=== PATIENT | male | born 1995 | race Two or more races ===

== ENCOUNTER 2018-12-25 14:51 | Emergency (ER) | payer SELFPAY ==
[~2018-12-25] VITALS: Ht 177.8 cm; Wt 72.6 kg
--- NOTE | 2018-12-25 14:58 | NUR ---
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
--- NOTE | 2018-12-25 15:00 | NUR ---
PT LINE ESTABIGAILHED. LABS DRAWNED AND SENT TO LAB.
[2018-12-25] MEDS ORDERED: ACETAMINOPHEN ES 500 MG TABLET ONE (15:26)
[2018-12-25] MEDS ORDERED: IBUPROFEN 600 MG TABLET PO ONE ×2 (15:27→15:30)
[2018-12-25] MEDS ORDERED: ACETAMINOPHEN ES 500 MG TABLET PO ONE (15:30)
--- NOTE | 2018-12-25 15:30 | NUR ---
RN ANGIOGRAPHY AT BEDSIDE FOR XRAY.
[2018-12-25 17:40] VITALS: BP 121/68
--- NOTE | 2018-12-25 17:54 | NUR ---
Patient discharged to home in stable condition. Written and verbal after care instructions given. Patient verbalizes understanding of instruction.
== END 2018-12-25 17:57 | disposition home or self-care (01) ==
LOC: ER 14:52
DX: R07.89 Other chest pain (principal); F45.8 Other somatoform disorders; J45.909 Unspecified asthma, uncomplicated
CPT/HCPCS: 71045-TC

== ENCOUNTER 2019-03-30 17:37 | Emergency (ER) | payer SELFPAY ==
[~2019-03-30] VITALS: Ht 180.3 cm; Wt 73.5 kg
[2019-03-30 18:00] VITALS: BP 155/89
[2019-03-30] MEDS ORDERED: TETRACAINE HCL/PF 0.5% UD 2 ML BOTTLE ONE (18:09)
[2019-03-30] MEDS ORDERED: FLUORESCEIN SODIUM OPHTH 1 EA STRIP ONE (18:09)
--- NOTE | 2019-03-30 18:10 | NUR ---
FOREIGN BODY TO RIGHT EYE,INJURED AT WORK WHILE SAWING WOOD AT 1500. PATIENT A/OX4, KEPT COMFORTABLE IN BED, WAITING FOR MD JARA.
--- NOTE | 2019-03-30 19:29 | NUR ---
RIGHT EYE CLEANSED WITH NORMAL SALINE USING ELIZABETH LENS.
== END 2019-03-30 19:29 | disposition home or self-care (01) ==
LOC: ER 17:48
DX: H57.11 Ocular pain, right eye (principal); J45.909 Unspecified asthma, uncomplicated; F10.10 Alcohol abuse, uncomplicated; Y90.9 Presence of alcohol in blood, level not specified
CPT/HCPCS: 99283; J7030

== ENCOUNTER 2019-09-20 13:52 | Emergency (ER) | payer SELFPAY ==
[~2019-09-20] VITALS: Ht 177.8 cm; Wt 74.8 kg
--- NOTE | 2019-09-20 14:24 | NUR ---
PT AAOX4. AMBULATORY WITH STEADY GAIT. BIBSELF C/O "SOMEONE MIGHT HAVE SLIPPED SOMETHING IN MY DRINK LAST NIGHT." ALSO, STATES HE "BLACKED OUT." PT DENIES ANY PAIN. DENIES FALL. PT C/O BEING ANXIOUS AND HIS HEART "RACING." PLACED ON MONITOR AND PULSE OX. NO ACUTE DISTRESS NOTED. VSS. AWAITING MD FOR EVAL.
[2019-09-20] MEDS ORDERED: LORAZEPAM INJ 2 MG/ML VIAL ONE (14:59)
[2019-09-20] MEDS ORDERED: LORAZEPAM INJ 2 MG/ML VIAL IV ONE (15:00)
[2019-09-20] MEDS ORDERED: IV NS 0.9% 1,000 ML BAG IV ONE ×2 (15:00→16:00)
--- NOTE | 2019-09-20 15:34 | NUR ---
Patient is resting comfortably in bed. Easily aroused. VSS.
--- NOTE | 2019-09-20 16:41 | NUR ---
PT RESTING. PT STATED "I FEEL BETTER THAN WHEN I CAME IN HERE"
--- NOTE | 2019-09-20 16:52 | NUR ---
Patient discharged to home in stable condition. Written and verbal after care instructions given. Patient verbalizes understanding of instruction and RX. IV removed. Catheter intact and site benign. Pressure and 4x4 applied to site. No bleeding noted.
[2019-09-20 16:53] VITALS: BP 125/85
== END 2019-09-20 16:54 | disposition home or self-care (01) ==
LOC: ER 13:52
DX: F10.239 Alcohol dependence with withdrawal, unspecified (principal); F15.10 Other stimulant abuse, uncomplicated; J45.909 Unspecified asthma, uncomplicated; R00.0 Tachycardia, unspecified; Y90.9 Presence of alcohol in blood, level not specified
CPT/HCPCS: 93005; 96374; 99283; J2060; J7030 ×2

== ENCOUNTER 2022-07-11 09:04 | Emergency (ER) | payer OTHER ==
[~2022-07-11] VITALS: Ht 172.7 cm; Wt 81.6 kg
[2022-07-11] MEDS ORDERED: predniSONE 20 MG TABLET PO ONE (09:30)
[2022-07-11] MEDS ORDERED: ALBUTEROL FS 2.5 MG/3 ML VIAL.NEB CONTNEB ONE (09:30)
[2022-07-11] MEDS ORDERED: IPRATROPIUM NEB FS 0.5 MG/2.5 ML AMPUL.NEB NEB ONE (09:30)
--- NOTE | 2022-07-11 09:45 | NUR ---
RT CALLED FOR BREATHING TX
[2022-07-11] MEDS ORDERED: predniSONE 20 MG TABLET ONE (09:47)
[2022-07-11] MEDS ORDERED: ALBUTEROL FS 2.5 MG/3 ML VIAL.NEB ONE (09:54)
[2022-07-11] MEDS ORDERED: IPRATROPIUM NEB FS 0.5 MG/2.5 ML AMPUL.NEB ONE (09:54)
[2022-07-11 09:59] VITALS: BP 140/90
[2022-07-11] MEDS ORDERED: PRED50TA PO (10:19)
[2022-07-11] MEDS ORDERED: ALBU6.7H9 INH (10:19)
--- NOTE | 2022-07-11 10:34 | NUR ---
Patient discharged to home in stable condition. Written and verbal after care instructions given. Patient verbalizes understanding of instruction.
== END 2022-07-11 10:45 | disposition home or self-care (01) ==
LOC: ER 09:11
DX: S20.212A Contusion of left front wall of thorax, initial encounter (principal); J45.909 Unspecified asthma, uncomplicated; Z79.899 Other long term (current) drug therapy; J45.901 Unspecified asthma with (acute) exacerbation; V80.010A Animal-rider injured by fall from or being thrown from horse in noncollision accident, initial encounter; Y93.89 Activity, other specified; Y92.89 Other specified places as the place of occurrence of the external cause; Y99.8 Other external cause status
CPT/HCPCS: 99283; 71100; 94640; J7512

== ENCOUNTER 2022-12-17 10:10 | Emergency (ER) | payer OTHER ==
[~2022-12-17] VITALS: Ht 180.3 cm; Wt 81.6 kg
[~2022-12-17 10:10] MED LIST: ALBU6.7H9 INH; PRED50TA PO
--- NOTE | 2022-12-17 10:20 | NUR ---
NAUSEA AND VOMITING FOR 1XDAY , DENIES PAIN.
--- NOTE | 2022-12-17 10:20 | NUR ---
ESTABLISHED IV LINE 20 G RIGHT AC, INFUSING WELL
[2022-12-17] MEDS ORDERED: ONDANSETRON HCL/PF 4 MG/2 ML VIAL IVP ONE (10:30)
[2022-12-17] MEDS ORDERED: IV NS 0.9% 1,000 ML BAG IV ONE (10:30)
[2022-12-17] MEDS ORDERED: ONDANSETRON HCL/PF 4 MG/2 ML VIAL ONE (10:35)
--- NOTE | 2022-12-17 10:39 | NUR ---
Evert adams in [facility] - 12/17/22 at 1041 by CANDACE NAUSEA AND VOMITING FOR 1XDAY , DENIES PAIN.
[2022-12-17] MEDS ORDERED: ONDA4TAB11 PO (11:17)
--- NOTE | 2022-12-17 11:23 | NUR ---
IV removed. Catheter intact and site benign. Pressure and 4x4 applied to site. No bleeding noted.
--- NOTE | 2022-12-17 11:23 | NUR ---
Patient discharged to home in stable condition. Written and verbal after care instructions given. Patient verbalizes understanding of instruction.
[2022-12-17 11:24] VITALS: BP 126/78
== END 2022-12-17 11:24 | disposition home or self-care (01) ==
LOC: ER 10:15
DX: R11.2 Nausea with vomiting, unspecified (principal); R19.7 Diarrhea, unspecified; J45.909 Unspecified asthma, uncomplicated
CPT/HCPCS: 99283; 96374; 96361; J2405; J7030

== ENCOUNTER 2024-02-12 08:06 | Emergency (ER) | payer OTHER ==
[~2024-02-12] VITALS: Ht 180.3 cm; Wt 86.2 kg
[~2024-02-12 08:06] MED LIST changes: +ONDA4TAB11 PO
[2024-02-12] MEDS ORDERED: ONDA4TAB5 PO (08:30)
[2024-02-12] MEDS: ONDANSETRON 4 MG TAB.RAPDIS SL ONE (08:40)
[2024-02-12 08:42] VITALS: BP 131/85; TEMP 98.5; O2SAT 100
== END 2024-02-12 08:43 | disposition home or self-care (01) ==
LOC: ER 08:21
DX: R11.2 Nausea with vomiting, unspecified (principal); J45.909 Unspecified asthma, uncomplicated; F10.10 Alcohol abuse, uncomplicated; F19.10 Other psychoactive substance abuse, uncomplicated; Y90.9 Presence of alcohol in blood, level not specified